=== PATIENT | male | born 1980 | race Caucasian/White ===

== ENCOUNTER 2021-08-31 03:36 | Emergency (ER) | payer BC ==
[~2021-08-31] VITALS: Ht 185.4 cm; Wt 111.1 kg
[2021-08-31] MEDS ORDERED: ADENOSINE 6MG/2ML 2 ML ONE (04:13)
[2021-08-31] MEDS ORDERED: ONDANSETRON HCL INJ 2MG/ML 2ML 2 MG/ML VIAL IV STA (04:16)
[2021-08-31] MEDS ORDERED: SODIUM CHLORIDE 0.9% 1000ML 1,000 ML IV STA ×2 (04:16→04:26)
[2021-08-31] MEDS ORDERED: ADENOSINE 6MG/2ML 1 ML ONE (04:17)
[2021-08-31] MEDS ORDERED: SODIUM CHLORIDE 0.9% 1000ML 1,000 ML ONE (04:24)
[2021-08-31] MEDS ORDERED: ONDANSETRON HCL INJ 2MG/ML 2ML 2 MG/ML VIAL ONE (04:24)
[2021-08-31] MEDS ORDERED: ADENOSINE 6 MG/2 ML VIAL IV ONE ×3 (04:30)
[2021-08-31] MEDS ORDERED: METOPROLOL TART25 MG PO (05:05)
[2021-08-31] MEDS ORDERED: ADENOSINE 6 MG/2 ML VIAL ONE (13:05)
== END 2021-08-31 05:30 | disposition home or self-care (01) ==
LOC: FSED 04:25
DX: R07.9 Chest pain, unspecified (principal); I47.1 Supraventricular tachycardia; R00.2 Palpitations
CPT/HCPCS: 71045; 80053; 82553; 84484; 85025; 93005; 99284; J0153; J2405; J7030